=== PATIENT | female | born 1990 | race Caucasian/White ===

== ENCOUNTER 2021-05-09 11:30 | Inpatient (IN) ==
[~2021-05-09 11:30] MED LIST: *HR* Nalbuphine 10 MG/ML AMPUL IV PRN; Famotidine 20 MG/2 ML VIAL IVP PRN; Lidocaine 1% 20 ML MDV ID PRN; Metoclopramide 10 MG/2 ML VIAL IVP PRN; Naloxone 0.4 MG/ML INJ IVP PRN; Ondansetron 4 MG/2 ML VIAL IVP PRN; Ringers Solution, Lactated 1,000 ML IVC SCH
[2021-05-09] MEDS ORDERED: EPHEDrine 50 MG/ML VIAL IVP PRN (11:53)
[2021-05-09] MEDS ORDERED: Ropivacaine/PF 0.2% 20 ML VIAL EP ONE (11:53)
[2021-05-09] MEDS ORDERED: Naloxone 0.4 MG/ML INJ IVP PRN (11:53)
[2021-05-09] MEDS ORDERED: *HR* FentaNYL (PF) 100 MCG/2 ML VIAL EP ONE (11:53)
[2021-05-09] MEDS ORDERED: Ondansetron 4 MG/2 ML VIAL IVP PRN (11:53)
[2021-05-09] MEDS ORDERED: Epidural Premix (fent/bupiv) 110 ML EP ONE (11:56)
[2021-05-09] MEDS ORDERED: Epidural Premix (fent/bupiv) 110 ML EP SCH (12:00)
[2021-05-09 12:22] LABS: Basophils % 0.3 %; Eosinophils % 0.2 %; Hematocrit 33.6 % (35.3-44.9); Hemoglobin 11.6 g/dL (11.5-15.4); Immature Granulocytes % 0.6 % (0-4); Lymphocytes # 1.6 K/mcL (0.6-4.6); Lymphocytes % 13.5 %; Mean Corpuscular HGB Conc 34.5 g/dL (31.6-35.5); Mean Corpuscular Hemoglobin 33.6 pg (28.0-33.3); Mean Corpuscular Volume 97.4 fL (83.0-100.0); Mean Platelet Volume 10.1 fL (9.4-12.4); Monocytes # 0.7 K/mcL (0.0-1.3); Monocytes % 5.7 %; Neutrophils # 9.6 K/mcL (1.6-8.9); Platelet Count 207 K/mcL (140-400); Red Blood Count 3.45 M/mcL (3.82-4.97); Red Cell Distribution Width 13.1 % (11.5-14.5); Segmented Neutrophils % 79.7 %
[2021-05-09 13:02] LABS: Amphetamine Screen,Urine Negative ng/mL (Cutoff=1000); Barbiturate Screen,Urine Negative ng/mL (Cutoff=200); Benzodiazepines Screen,Urine Negative ng/mL (Cutoff=200); Cannabinoid Screen,Urine Negative ng/mL (Cutoff = 50); Cocaine Screen,Urine Negative ng/mL (Cutoff= 300); Opiate Screen,Urine Negative ng/mL (Cutoff=300); Phencyclidine Screen,Urine Negative ng/mL (Cutoff=25)
[2021-05-09 13:14] LABS: Influenza A PCR Negative (Negative); Influenza B PCR Negative (Negative); Resp. Syncytial Virus PCR Negative (Negative)
[2021-05-09 13:27] LABS: SARS-CoV-2 by PCR (In House) Negative (Negative)
[2021-05-09] MEDS ORDERED: Oxytocin 20 units/ LR 1000 mL 20 UNIT/1,000 ML BAG IVC SCH (15:49)
[2021-05-09] MEDS ORDERED: Benzocaine/Menthol 56 GM AEROSOL SPRAY TP PRN (15:49)
[2021-05-09] MEDS ORDERED: Measles/Mumps/Rubella Vacc 0.5 ML VIAL SQ PRN (15:49)
[2021-05-09] MEDS ORDERED: Lanolin 7 G OINT...G. TP PRN (15:49)
[2021-05-09] MEDS ORDERED: Ondansetron ODT 4 MG TAB.RAPDIS SL PRN (15:49)
[2021-05-09] MEDS: Ibuprofen 600 MG TABLET PO SCH ×2 (18:07→20:00)
[2021-05-09] MEDS: Acetaminophen 325 MG TABLET PO SCH (18:07)
[2021-05-10] MEDS: Acetaminophen 325 MG TABLET PO SCH ×3 (00:43→09:07)
[2021-05-10] MEDS: Ibuprofen 600 MG TABLET PO SCH ×3 (02:06→14:56)
[2021-05-10 07:56] VITALS: O2SAT 98
[2021-05-10 08:28] LABS: Basophils % 0.4 %; Eosinophils % 1.1 %; Hematocrit 28.9 % (35.3-44.9); Immature Granulocytes % 0.6 % (0-4); Lymphocytes % 13.7 %; Mean Corpuscular HGB Conc 34.3 g/dL (31.6-35.5); Mean Corpuscular Volume 99.3 fL (83.0-100.0); Mean Platelet Volume 10.2 fL (9.4-12.4); Monocytes % 6.2 %; Platelet Count 170 K/mcL (140-400); Red Blood Count 2.91 M/mcL (3.82-4.97); Red Cell Distribution Width 13.2 % (11.5-14.5); White Blood Count 10.1 K/mcL (4.3-11.1)
[2021-05-10 08:29] LABS: Eosinophils # 0.1 K/mcL (0.0-0.6); Lymphocytes # 1.4 K/mcL (0.6-4.6); Monocytes # 0.6 K/mcL (0.0-1.3); Neutrophils # 7.9 K/mcL (1.6-8.9)
[2021-05-10 08:31] LABS: Hemoglobin 9.9 g/dL (11.5-15.4)
[2021-05-10] MEDS ORDERED: valACYclovir 500 MG TABLET PO SCH (09:00)
[2021-05-10] MEDS ORDERED: Prenatal Vit/FA 1 EACH TABLET PO SCH (09:00)
[2021-05-10 15:31] VITALS: BP 123/80; PULSE 69; TEMP 98.1
== END 2021-05-10 16:33 | disposition home or self-care (01) | DRG 806 ==
LOC: 1NENULAB → 1NENUOBS 17:40
PROVIDERS: ADMIT Obstetrics & Gynecology; ATTEND Obstetrics & Gynecology